=== PATIENT | male | born 1955 | race Caucasian/White ===

== ENCOUNTER → 2017-02-25 | Outpatient (CLI) | payer MEDICARE, OTHER ==
[~2017-02-25] MED LIST: ASPI-266 PO; ASPI-86 PO; CFR250T PO; EXEN10PE4 SQ; FEXO180T PO; FISH OIL 1,2001 EAC1 PO; FLT05NA16 NSEACH; GARL10002 PO; GLIP10TA13 PO; HYDR-3729 PO; HYDR1TAB PO; INSU100I29 SQ; INSU300I SQ; KRILL OIL; LIRA0.6P SQ; LISI10TA2 PO; METF-380 PO; NIAC250T17 PO; Niacin PO; OMEP20CA12 PO; OMEPRAZOLE PO; OXYC-12 PO; SAXA5TAB PO; SIMV40TA4 PO; SMV20T PO; SULF1TAB38 PO; TEST100V3 IM; TRAM50TA2 PO; TRM50T PO; levemir IJ; onglyza
== END ==
LOC: CARD 08:59
PROVIDERS: ATTEND Internal Medicine Cardiovascular Disease
DX: I10 Essential (primary) hypertension (principal); E78.5 Hyperlipidemia, unspecified; E11.9 Type 2 diabetes mellitus without complications; M19.90 Unspecified osteoarthritis, unspecified site; Z72.0 Tobacco use
CPT/HCPCS: 93017; 93306

== ENCOUNTER → 2017-05-29 | Outpatient (CLI) | payer MEDICARE, OTHER ==
--- NOTE | 2017-05-29 09:40 | Diagnostic Imaging Report ---
INDICATION: Cough. Time of exam 9:34 AM Correlation is made with prior study 05/31/2015. The heart size is normal. The pulmonary vascularity is unremarkable. The lungs are clear. No infiltrate, effusion or pneumothorax is detected. Impression: No acute cardiopulmonary process is detected. Report was called to Roberto/office of Dr. Nunez by jc at 9:40 am. Dictated by: Dictated on workstation # [id number]
== END ==
LOC: RAD 08:38
PROVIDERS: ATTEND Internal Medicine
DX: R05 Cough (principal)
CPT/HCPCS: 71046

== ENCOUNTER → 2019-01-30 | Outpatient (CLI) | payer MEDICARE, OTHER ==
[~2019-01-30] MED LIST changes: +CATHETER FLUSH 10 ML SYR IV PRN; +HOLD METFORMIN - RECEIVED CONTRAST 20 ML VIAL IV SCH; +IOHEXOL 350 MG/ML 100 ML (OMNIPAQUE 350) VIAL IV ONE; +NS 100 ML (IVPB) BAG IV ONE
== END ==
LOC: RAD 01-23 14:36
PROVIDERS: ATTEND Internal Medicine
DX: R10.9 Unspecified abdominal pain (principal); Z53.8 Procedure and treatment not carried out for other reasons

== ENCOUNTER → 2019-09-22 | Outpatient (CLI) | payer MEDICARE, OTHER ==
[~2019-09-22] MED LIST changes: -CATHETER FLUSH 10 ML SYR IV PRN; -HOLD METFORMIN - RECEIVED CONTRAST 20 ML VIAL IV SCH; -IOHEXOL 350 MG/ML 100 ML (OMNIPAQUE 350) VIAL IV ONE; -NS 100 ML (IVPB) BAG IV ONE
[2019-09-22 09:02] LABS: ABSOLUTE RETIC # 39 10e9/L (24-90); BASOPHILS % (AUTO) 0 % (0-10); EOSINOPHILS # (AUTO) 0.7 10^3/uL (0.0-0.3); EOSINOPHILS % (AUTO) 7 % (0-10); HEMATOCRIT 47 % (40-54); LYMPHOCYTES # (AUTO) 2.2 X 10^3 (1.0-4.0); LYMPHOCYTES % (AUTO) 21 % (12-44); MEAN CORPUSCULAR HEMOGLOBIN 30 PG (25-34); MEAN CORPUSCULAR HGB CONC 34 G/DL (32-36); MEAN CORPUSCULAR VOLUME 89 FL (80-99); MEAN PLATELET VOLUME 10.3 FL (7.4-10.4); MONOCYTES # (AUTO) 0.8 X 10^3 (0.0-1.0); MONOCYTES % (AUTO) 8 % (0-12); NEUTROPHILS # (AUTO) 7.1 X 10^3 (1.8-7.8); NEUTROPHILS % (AUTO) 65 % (42-75); PLATELET COUNT 183 10^3/uL (130-400); RED CELL DISTRIBUTION WIDTH 13.3 % (10.0-14.5); RETICULOCYTE % 0.74 % (0.50-2.40); WHITE BLOOD COUNT 10.9 10^3/uL (4.3-11.0)
[2019-09-22 09:51] LABS: BAND NEUTROPHILS 2 %; EOSINOPHILS % (MANUAL) 4 %; LYMPHOCYTES % (MANUAL) 20 %; MONOCYTES % (MANUAL) 10 %; NEUTROPHILS % (MANUAL) 64 %; RBC MORPH NORMAL
== END ==
LOC: LAB 08:37
PROVIDERS: ATTEND Internal Medicine
DX: D72.829 Elevated white blood cell count, unspecified (principal); D75.1 Secondary polycythemia
CPT/HCPCS: 36415; 85007; 85027; 85045

== ENCOUNTER 2019-11-13 08:25 | Outpatient (RCR) | payer MEDICARE, OTHER ==
[2019-11-13 09:18] LABS: ABSOLUTE RETIC # 76 10e9/L (24-90); BASOPHILS # (AUTO) 0.1 10^3/uL (0.0-0.1); BASOPHILS % (AUTO) 1 % (0-10); EOSINOPHILS # (AUTO) 0.7 10^3/uL (0.0-0.3); EOSINOPHILS % (AUTO) 6 % (0-10); HEMATOCRIT 49 % (40-54); HEMOGLOBIN 16.8 G/DL (13.3-17.7); LYMPHOCYTES # (AUTO) 2.3 X 10^3 (1.0-4.0); LYMPHOCYTES % (AUTO) 21 % (12-44); MEAN CORPUSCULAR HEMOGLOBIN 30 PG (25-34); MEAN CORPUSCULAR HGB CONC 35 G/DL (32-36); MEAN CORPUSCULAR VOLUME 88 FL (80-99); MEAN PLATELET VOLUME 9.7 FL (7.4-10.4); MONOCYTES # (AUTO) 0.8 X 10^3 (0.0-1.0); MONOCYTES % (AUTO) 7 % (0-12); NEUTROPHILS # (AUTO) 7.1 X 10^3 (1.8-7.8); NEUTROPHILS % (AUTO) 65 % (42-75); PLATELET COUNT 194 10^3/uL (130-400); RETICULOCYTE % 1.38 % (0.50-2.40); WHITE BLOOD COUNT 10.9 10^3/uL (4.3-11.0)
[2019-11-13 09:42] LABS: ALANINE AMINOTRANSFERASE 36 U/L (0-55); ALKALINE PHOSPHATASE 56 U/L (40-136); BILIRUBIN,TOTAL 0.5 MG/DL (0.1-1.0); BUN/CREATININE RATIO 15; CALCIUM 9.2 MG/DL (8.5-10.1); CARBON DIOXIDE 21 MMOL/L (21-32); CHLORIDE 108 MMOL/L (98-107); GFR ESTIMATED > 60; GLUCOSE 119 MG/DL (70-105); POTASSIUM 4.4 MMOL/L (3.6-5.0); SODIUM 140 MMOL/L (135-145); TOTAL PROTEIN 7.2 GM/DL (6.4-8.2)
== END 2020-02-11 | disposition home or self-care (01) ==
LOC: ONC 08:25
PROVIDERS: ATTEND Internal Medicine Hematology & Oncology
DX: D72.829 Elevated white blood cell count, unspecified (principal); D75.1 Secondary polycythemia
CPT/HCPCS: 80053; 82375; 82668; 83615; 85025; 85045; G0463; 99214

== ENCOUNTER → 2020-06-02 | Outpatient (CLI) | payer MEDICARE, OTHER ==
[2020-06-02 15:24] LABS: BASOPHILS # (AUTO) 0.1 10^3/uL (0.0-0.1); BASOPHILS % (AUTO) 1 % (0-10); EOSINOPHILS # (AUTO) 0.5 10^3/uL (0.0-0.3); EOSINOPHILS % (AUTO) 5 % (0-10); HEMATOCRIT 48 % (40-54); LYMPHOCYTES # (AUTO) 2.6 X 10^3 (1.0-4.0); LYMPHOCYTES % (AUTO) 23 % (12-44); MEAN CORPUSCULAR HEMOGLOBIN 30 PG (25-34); MEAN CORPUSCULAR HGB CONC 33 G/DL (32-36); MEAN CORPUSCULAR VOLUME 90 FL (80-99); MEAN PLATELET VOLUME 9.9 FL (7.4-10.4); MONOCYTES # (AUTO) 0.8 X 10^3 (0.0-1.0); MONOCYTES % (AUTO) 7 % (0-12); NEUTROPHILS # (AUTO) 7.1 X 10^3 (1.8-7.8); NEUTROPHILS % (AUTO) 64 % (42-75); PLATELET COUNT 209 10^3/uL (130-400); WHITE BLOOD COUNT 11.1 10^3/uL (4.3-11.0)
[2020-06-02 15:41] LABS: ALBUMIN 3.8 GM/DL (3.2-4.5); CHLORIDE 109 MMOL/L (98-107); POTASSIUM 4.6 MMOL/L (3.6-5.0); SODIUM 139 MMOL/L (135-145)
[2020-06-02 15:42] LABS: CALCIUM 8.7 MG/DL (8.5-10.1)
[2020-06-02 15:43] LABS: GLUCOSE 175 MG/DL (70-105); TOTAL PROTEIN 7.2 GM/DL (6.4-8.2)
[2020-06-02 15:44] LABS: CARBON DIOXIDE 20 MMOL/L (21-32)
[2020-06-02 15:45] LABS: BILIRUBIN,TOTAL 0.2 MG/DL (0.1-1.0)
[2020-06-02 15:47] LABS: ALKALINE PHOSPHATASE 53 U/L (40-136); CREATININE SERUM 1.09 MG/DL (0.60-1.30); GFR ESTIMATED > 60
[2020-06-02 15:48] LABS: BUN/CREATININE RATIO 19
[2020-06-02 15:50] LABS: ALANINE AMINOTRANSFERASE 27 U/L (0-55)
== END ==
LOC: EDSTATUS 02-12 08:08 → ONC 15:11
PROVIDERS: ATTEND Internal Medicine Hematology & Oncology
DX: D72.19 Other eosinophilia (principal); J82.89 Other pulmonary eosinophilia, not elsewhere classified; I65.29 Occlusion and stenosis of unspecified carotid artery; D75.1 Secondary polycythemia; E11.9 Type 2 diabetes mellitus without complications; I11.9 Hypertensive heart disease without heart failure; I50.9 Heart failure, unspecified; E78.2 Mixed hyperlipidemia; R79.89 Other specified abnormal findings of blood chemistry; Z87.891 Personal history of nicotine dependence
CPT/HCPCS: 80053; 85025; G0463; 99213

== ENCOUNTER → 2021-04-27 | Outpatient (CLI) | payer MEDICARE, OTHER ==
[~2021-04-27] MED LIST changes: -TEST100V3 IM; +TEST100V9 IM
--- NOTE | 2021-04-27 10:28 | Diagnostic Imaging Report ---
INDICATION: Pain in the left 5th metatarsal. TIME OF EXAM: 10:24 AM Three views of the left foot were obtained. Metatarsals appear to be intact. Phalanges are intact. Midfoot and hindfoot are unremarkable apart from a large plantar calcaneal spur. No fractures are seen. IMPRESSION: No acute bony abnormality is detected. Dictated by: Dictated on workstation # [id number]
== END ==
LOC: RAD 09:48
PROVIDERS: ATTEND Internal Medicine
DX: M79.672 Pain in left foot (principal)
CPT/HCPCS: 73630

== ENCOUNTER → 2021-05-09 | Outpatient (CLI) | payer MEDICARE, OTHER | LOC: ORTHO 13:05 | PROVIDERS: ATTEND Orthopaedic Surgery | DX: S93.602A Unspecified sprain of left foot, initial encounter (principal); X58.XXXA Exposure to other specified factors, initial encounter | CPT/HCPCS: 99202 ==

== ENCOUNTER → 2021-06-30 | Outpatient (CLI) | payer MEDICARE, OTHER | LOC: CARD 08:30 | PROVIDERS: ATTEND Physician Assistant | DX: I11.9 Hypertensive heart disease without heart failure (principal) | CPT/HCPCS: 93306 ==

== ENCOUNTER → 2021-07-04 | Outpatient (CLI) | payer MEDICARE, OTHER ==
--- NOTE | 2021-07-04 11:50 | Diagnostic Imaging Report ---
INDICATION: PAIN IN LEFT FOOT COMPARISON: None. FINDINGS: 3 views of the left foot demonstrate no acute fracture or dislocation. There are no focal osseous lesions. There is no soft tissue swelling. Joint spaces are well maintained. No radiopaque foreign bodies are seen. IMPRESSION: No acute fractures or dislocations of the left foot. Dictated by: Dictated on workstation # [id number]
== END ==
LOC: ORTHO 09:32
PROVIDERS: ATTEND Orthopaedic Surgery
DX: M79.672 Pain in left foot (principal)
CPT/HCPCS: 73630; G0463; 99213

== ENCOUNTER → 2021-07-19 | Outpatient (CLI) | payer MEDICARE, OTHER ==
[~2021-07-19] VITALS: Ht 172 cm; Wt 122.0 kg
[~2021-07-19] MED LIST changes: +CATHETER FLUSH 10 ML SYR IVP PRN; +REGADENOSON 0.4 MG/5 ML SYR (LEXISCAN) IV ONE
[2021-07-19 09:15] VITALS: BP 161/71
--- NOTE | 2021-07-19 13:45 | Cardiology Stress Test Report ---
Stress Test Report Date of Procedure/Referring: Date of Procedure: Jul 19, 2021 Kamila Zhou Admitting Physician Anastasiia Herbert MD Indications: HTN Baseline Heart Rate: 78 Baseline Blood Pressure: Blood Pressure Systolic: 161 Blood Pressure Diastolic: 71 Baseline Vitals Vital Signs Date Time Temp Pulse Resp B/P (MAP) Pulse Ox O2 Delivery O2 Flow Rate FiO2 07/19/21 09:15 107 17 161/71 (101) Baseline EKG: Baseline EKG: NSR Summary After explaining the procedure to the patient, he signed a consent and then brought to the stress nuclear laboratory. Patient received 0.4 mg Lexiscan for stress test, ECG, heart rate and blood pressure were monitored continuously. Resting and stress dose of radio tracer were injected, imaging was acquired and reviewed in short axis, horizontal long axis and vertical long axis views. TID: 0.92 SSS: 1 SDS: 1 EF: 57 1. Patient tolerated Lexiscan well 2. Diaphragmatic attenuation and increasing intestinal uptake, overall there is no significant ischemia or infarction on SPECT images 3. Normal left ventricular size, EF 57% Copy Copies To 1: ANASTASIIA HERBERT MD, BASHAR J MD Jul 19, 2021 13:45
== END ==
LOC: CARD 08:00
PROVIDERS: ATTEND Physician Assistant
DX: I10 Essential (primary) hypertension (principal)
CPT/HCPCS: 78452; 93017; A9502

== ENCOUNTER → 2021-07-31 | Outpatient (CLI) | payer MEDICARE, OTHER ==
[~2021-07-31] MED LIST changes: -CATHETER FLUSH 10 ML SYR IVP PRN; -REGADENOSON 0.4 MG/5 ML SYR (LEXISCAN) IV ONE
--- NOTE | 2021-07-31 15:04 | Diagnostic Imaging Report ---
EXAM: MRI left foot without contrast. DATE: July 31, 2021. INDICATION: 66-year-old male, left foot smash injury. Left foot pain. COMPARISON: Left foot radiographs July 04, 2021. TECHNIQUE: Multiple noncontrast MRI sequences of the foot were obtained. FINDINGS: The Lisfranc ligament proper is intact. The imaged portions of the peroneal tendons, posterior flexor tendons, and anterior extensor tendons are intact. The visualized portions of the plantar fascia are intact. There is no acute fracture, bone contusion, stress reaction, or evidence of osteomyelitis. There is normal variant congenital fusion of the fifth digit middle and distal phalanges. There is very mild arthritis at the talonavicular articulation. 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 The additional joint spaces are well preserved. There is no joint effusion. There is dorsal subcutaneous edema at the level of the metatarsals and proximal phalanges without identified focal fluid collection. IMPRESSION: 1. No acute fracture, bone contusion, or other notable bone marrow signal abnormality. 2. Nonspecific dorsal subcutaneous edema, most notably at the level of the lateral aspect of the foot and metatarsals and proximal phalanges without focal fluid collection. 3. Intact imaged tendons and intact Lisfranc ligament proper. 4. Very mild arthritis at the talonavicular articulation and first metatarsophalangeal joint with otherwise preserved joint spaces and no joint effusion. Dictated by: Dictated on workstation # [id number]
== END ==
LOC: RAD 10:02
PROVIDERS: ATTEND Orthopaedic Surgery
DX: M19.072 Primary osteoarthritis, left ankle and foot (principal)

== ENCOUNTER 2021-08-03 18:29 | Emergency (ER) | payer MEDICARE, OTHER ==
[~2021-08-03] VITALS: Ht 173 cm; Wt 122.5 kg
[2021-08-03 18:55] VITALS: BP 168/80
[2021-08-03] MEDS ORDERED: AMLO-250 (19:02)
[2021-08-03] MEDS ORDERED: ATOR10TA66 (19:02)
[2021-08-03] MEDS ORDERED: ALFU10TA12 (19:02)
[2021-08-03] MEDS ORDERED: CEPHALEXIN 250 MG (KEFLEX) CAP PO STA (19:14)
[2021-08-03] MEDS ORDERED: NAPROXEN 250 MG (NAPROSYN) TABLET PO ONE (19:15)
[2021-08-03] MEDS ORDERED: CEPH500T PO (19:21)
--- NOTE | 2021-08-03 19:21 | ED Lower Extremity ---
General Chief Complaint: Lower Extremity Stated Complaint: LEFT FOOT Nursing Triage Note: c/o left lateral lower foot pain/redness x1 day. reports smashing foot in car door in april et. having pain since then. Source: patient Exam Limitations: no limitations History of Present Illness Date Seen by Provider: Aug 03, 2021 Time Seen by Provider: 18:55 Initial Comments The patient presents to the ER by private conveyance with chief complaint of a one day of progressively worsening redness on the bottom and left side of his left foot as well as increasing pain. He has not taken anything for the pain yet. He has been using topical creams and ointments. He says in April of this year he smashed his foot in a door and has had subsequent x-rays as well as an MRI couple days ago which did not reveal any fractures or significant ligamentous injury. He just got out of the boot and the pain is getting worse. He did have a bout of cellulitis where the boot rubbed the front of his leg raw which was treated and he is off antibiotics since May. He is not having any chest pain or shortness of air. No swelling or pain in his calf. He is followed by Dr. Riddle orthopedics. Allergies and Home Medications Allergies Coded Allergies: ampicillin (Unverified Allergy, Unknown, SWELLS ANKLES, 06/10/14) Patient Home Medication List Home Medication List Reviewed: Yes Alfuzosin HCl (Alfuzosin HCl ER) 10 Mg Tab.er.24h, (Reported) Entered as Reported by: JULIAN DAILEY on 08/03/211901 Last Action: New Order Amlodipine Besylate (Amlodipine Besylate) 5 Mg Tablet, (Reported) Entered as Reported by: JULIAN DAILEY on 08/03/211901 Last Action: New Order Aspirin (Aspirin Ec Low Dose) 81 Mg Tablet., 81 MG PO DAILY, (Reported) Entered as Reported by: TORI QUINN on 06/17/14 1507 Atorvastatin Calcium (Atorvastatin Calcium) 10 Mg Tablet, (Reported) Entered as Reported by: JULIAN DAILEY on 08/03/211901 Last Action: New Order Fluticasone Propionate (Flonase 0.05% Nasal [place]) 16 Gm [place], 1 SPRAYS NSEACH DAILY PRN for ALLERGIES, (Reported) Entered as Reported by: TORI QUINN on 06/17/14 1509 Hydrocodone/Acetaminophen (Lortab 5-325 mg Tablet) 1 Each Tablet, 1-2 EACH PO Q6H Prescribed by: MATILDE RODAS on 10/20/15 0933 Insulin Glargine,Hum.rec.anlog (Toalexandrea Velázquezostar) 300 Unit/1 Ml Insuln.pen, 43 UNIT SQ HS, (Reported) Entered as Reported by: TEA PIZARRO on 08/08/15 1326 Liraglutide (Victoza 2-Jaylen) 0.6 Mg/0.1 Ml Pen.injctr, 1.8 MG SQ DAILY, (Reported) Entered as Reported by: TEA PIZARRO on 08/08/15 1326 Lisinopril (Lisinopril) 10 Mg Tablet, 10 MG PO DAILY, (Reported) Entered as Reported by: GABRIELLE RUDOLPHN,WCC,CWOCN,CFCN on 07/20/13 1524 Metformin Hcl (Metformin 1000 Mg) 1,000 Mg Tablet, 1,000 MG PO BID, (Reported) Entered as Reported by: TESHA STAUFFER on 08/13/09 1218 Omeprazole (Omeprazole) 20 Mg Capsule.dr, 40 MG PO DAILY, (Reported) Entered as Reported by: TORI QUINN on 06/17/14 1507 Simvastatin (Simvastatin) 40 Mg Tablet, 40 MG PO 1800, (Reported) Entered as Reported by: GABRIELLE RUDOLPHN,WCC,CWOCN,CFCN on 07/20/13 1524 Testosterone Cypionate (Testosterone Cypionate) 100 Mg/1 Ml Vial, 100 MG IM Q 2 WEEKS, (Reported) Entered as Reported by: TEA PIZARRO on 08/08/15 1405 Review of Systems Constitutional: No chills, No diaphoresis EENTM: No ear discharge, No ear pain Respiratory: No cough, No short of breath Cardiovascular: No chest pain, No edema Gastrointestinal: No abdominal pain, No nausea, No vomiting Genitourinary: No discharge, No dysuria Musculoskeletal: No back pain, No joint pain Skin: see HPI, change in color All Other Systems Reviewed Negative Unless Noted: Yes Past Xxolfnh-Zjlszv-Fpsdfc Hx Patient Social History Tobacco Use?: No Substance use?: No Alcohol Use?: No Pt feels they are or have been: No Past Medical History Surgery/Hospitalization HX: hernia, garcia, t/a, niddm, htn, high lipids Sleep Apnea Reproductive Disorders: No Sexually Transmitted Disease: No HIV/AIDS: No Gastroesophageal Reflux Arthritis, Chronic Back Pain Diabetes, Non-Insulin dep Loss of Vision: Denies Hearing Impairment: Denies Eczema Adverse Reaction/Blood Tranf: No Physical Exam Vital Signs Vital Signs - First Documented 08/03/21 18:55 Temp 37.2 Pulse 85 Resp 16 B/P (MAP) 168/80 (109) Pulse Ox 95 O2 Delivery Room Air Capillary Refill : Less Than 3 Seconds Height, Weight, BMI Height: 5'8.00" Weight: 245lbs. 0.0oz. 111.057680ca; 40.00 BMI Method:Stated General Appearance: WD/WN, no apparent distress HEENT: PERRL/EOMI, pharynx normal Neck: full range of motion, supple, normal inspection Cardiovascular: normal peripheral pulses, regular rate, rhythm Respiratory: no respiratory distress, no accessory muscle use Ankles: bilateral ankle non-tender, bilateral ankle normal inspection, bilateral ankle normal range of motion, bilateral ankle no evidence of injury Feet: right foot non-tender, right foot normal inspection; bilateral foot normal range of motion; right foot no evidence of injury; left foot bone tenderness (Along the base of the proximal fifth left metatarsal), left foot pain, left foot other (Blanchable erythema) Neurologic/Tendon: normal sensation, normal motor functions, normal tendon functions, responds to pain Neurologic/Psychiatric: no motor/sensory deficits, alert, normal mood/affect Skin: other (Blanchable erythema without breakdown of the skin along the left foot) Progress/Results/Core Measures Results/Orders Vital Signs/I&O 08/03/21 18:55 Temp 37.2 Pulse 85 Resp 16 B/P (MAP) 168/80 (109) Pulse Ox 95 O2 Delivery Room Air Blood Pressure Mean: 109 Progress Progress Note : Time: 19:17 Progress Note This may represent a cellulitis and given the fact that he is insulin-dependent diabetic we will go ahead and put him on Keflex. We will give him some naproxen and his first dose tonight. We will have him follow-up with podiatry as there may be undiagnosed soft tissue injury that needs help. He is starting physical therapy this week. Return precautions were discussed. I have not seen any evidence of a DVT at this time. Departure Impression Primary Impression: Injury of left foot Qualified Codes: S99.922D - Unspecified injury of left foot, subsequent encounter Additional Impression: Cellulitis Qualified Codes: L03.116 - Cellulitis of left lower limb Disposition: HOME, SELF-CARE Condition: Stable Departure-Patient Inst. Decision time for Depature: 19:19 Referrals: JORDANA DUFFY DPM, JOHN D MD (PCP/Family) Primary Care Physician RACIEL STANFORD DPM Patient Instructions: Cellulitis (Skin Infection), Adult ED, Foot Sprain (DC) Add. Discharge Instructions: If this redness of your foot is from cellulitis then it should improve on 3 to 4 days of antibiotics. Keflex 1 capsule 4 times a day for a week. If it is due to soft tissue injury and physical therapy is not helping then I would recommend you follow-up in the next 1 to 2 weeks with a poultry barn manager as listed above. Promptly return to the ER for high fever above 102.5, redness going up your leg, chest pain or shortness of air. Tylenol 1000 mg every 8 hours needed for pain. Ibuprofen 800 mg every 8 hours or Aleve 2 tablets twice a day as needed for pain. All discharge instructions reviewed with patient and/or family. Voiced understanding. Scripts Cephalexin (Cephalexin) 500 Mg Tablet 500 MG PO QID for 7 Days, #28 TAB 0 Refills Prov: KALIE QUEVEDO 08/03/21 KALIE QUEVEDO Aug 03, 2021 19:20
== END 2021-08-03 19:25 | disposition home or self-care (01) ==
LOC: EDUNIT# 18:29 → ER 18:32
DX: S99.922D Unspecified injury of left foot, subsequent encounter (principal); L03.116 Cellulitis of left lower limb; E11.9 Type 2 diabetes mellitus without complications; Z79.4 Long term (current) use of insulin; W23.0XXD Caught, crushed, jammed, or pinched between moving objects, subsequent encounter
CPT/HCPCS: 99283

== ENCOUNTER → 2021-09-12 | Outpatient (RCR) | payer MEDICARE, OTHER ==
[~2021-09-12] MED LIST changes: +ALFU10TA12; +AMLO-250; +ATOR10TA66; +CEPH500T PO
== END | disposition home or self-care (01) ==
PROVIDERS: ATTEND Orthopaedic Surgery
DX: M79.672 Pain in left foot (principal)

== ENCOUNTER → 2021-10-12 | Outpatient (RCR) | payer MEDICARE, OTHER | END | disposition home or self-care (01) | PROVIDERS: ATTEND Orthopaedic Surgery | DX: M79.672 Pain in left foot (principal); I10 Essential (primary) hypertension ==

== ENCOUNTER 2021-11-02 09:51 | Outpatient (RCR) | payer MEDICARE, OTHER | END 2021-11-12 | disposition home or self-care (01) | PROVIDERS: ATTEND Orthopaedic Surgery | DX: M79.672 Pain in left foot (principal); I10 Essential (primary) hypertension; E11.9 Type 2 diabetes mellitus without complications ==

== ENCOUNTER → 2022-04-26 | Outpatient (CLI) | payer MEDICARE, OTHER ==
--- NOTE | 2022-04-26 08:58 | Diagnostic Imaging Report ---
Indication: Cough PA and lateral views of the chest are obtained with comparison made study of 05/29/2017 FINDINGS: Heart size and pulmonary vascularity are within normal limits, and the lungs are clear, bilaterally. IMPRESSION: Unremarkable chest. Dictated by: Dictated on workstation # [id number]
== END ==
LOC: RAD 08:39
PROVIDERS: ATTEND Internal Medicine
DX: R05.9 Cough, unspecified (principal)
CPT/HCPCS: 71046